=== PATIENT | female | born 2000 | race Caucasian/White ===

== ENCOUNTER 2022-02-27 14:07 | Outpatient (CLI) | payer OTHER | END 2022-02-27 14:08 | disposition home or self-care (01) | LOC: CSHULT 14:07 | PROVIDERS: ATTEND Family Medicine | DX: Z34.02 Encounter for supervision of normal first pregnancy, second trimester (principal); Z3A.24 24 weeks gestation of pregnancy | CPT/HCPCS: 76805 ==

== ENCOUNTER 2022-04-09 16:15 | Emergency (ER) | payer OTHER | END 2022-04-09 17:02 | disposition home or self-care (01) | LOC: CSHERS 16:15 | DX: O99.891 Other specified diseases and conditions complicating pregnancy (principal); H66.92 Otitis media, unspecified, left ear; Z20.822 Contact with and (suspected) exposure to COVID-19; O99.333 Smoking (tobacco) complicating pregnancy, third trimester; F17.290 Nicotine dependence, other tobacco product, uncomplicated; Z3A.30 30 weeks gestation of pregnancy | CPT/HCPCS: 87804; 99283; U0003; U0005 ==

== ENCOUNTER 2022-05-08 16:14 | Day surgery (SDC) | payer OTHER | END 2022-05-08 18:35 | disposition home or self-care (01) | LOC: CSHLD/OP 16:14 | PROVIDERS: ATTEND Family Medicine | DX: Z36.4 Encounter for antenatal screening for fetal growth retardation (principal); Z3A.34 34 weeks gestation of pregnancy | CPT/HCPCS: 59025; 76815; 76819; 99282 ==

== ENCOUNTER 2022-06-12 18:00 | Inpatient (IN) | payer OTHER ==
[~2022-06-12 18:00] MED LIST: Bupivacaine/Epinephrine 0.25% 30 ML VIAL ONE; Terbutaline Sulfate 1 MG/ML VIAL ONE; ePHEDrine Sulfate 50 MG/10 ML VIAL ONE
[2022-06-12 22:13] VITALS: BMI 32.7
[2022-06-12] MEDS ORDERED: Acetaminophen 500 MG TAB PO PRN (23:00)
[2022-06-12] MEDS ORDERED: Tranexamic Acid 1,000 MG in Sodium Chloride 0.9% 250 ML 250 ML IVPB PRN (23:00)
[2022-06-12] MEDS ORDERED: Misoprostol 200 MCG TAB PR PRN (23:00)
[2022-06-12] MEDS ORDERED: HYDROcodone/Acetaminophen 5/325 mg Tablet PO PRN (23:00)
[2022-06-12] MEDS ORDERED: Butorphanol Tartrate 1 MG/ML VIAL SLOW IVP PRN (23:00)
[2022-06-12] MEDS ORDERED: Ondansetron PF 4 MG/2 ML Vial IVP PRN (23:00)
[2022-06-12] MEDS ORDERED: Lidocaine 1% (PF) 30 ML VIAL SC PRN (23:00)
[2022-06-12] MEDS ORDERED: Diphenoxylate HCl/Atropine Tablet PO PRN (23:00)
[2022-06-12] MEDS ORDERED: NS w/ Oxytocin 30 units 500 ML IV SCH (23:00)
[2022-06-12] MEDS ORDERED: Carboprost 250 MCG/ML AMP IM PRN (23:00)
[2022-06-12] MEDS ORDERED: Methylergonovine 0.2 MG/ML VIAL IM PRN (23:00)
[2022-06-12] MEDS ORDERED: Promethazine HCl 25 MG/ML VIAL IM PRN (23:00)
[2022-06-12] MEDS ORDERED: hydrALAZINE 20 MG/ML VIAL SLOW IVP PRN (23:00)
[2022-06-12] MEDS ORDERED: Ibuprofen 800 MG TAB PO PRN (23:00)
[2022-06-12] MEDS ORDERED: Misoprostol 100 MCG TAB ONE (23:10)
[2022-06-12] MEDS ORDERED: Penicillin G Potassium 5 MILL.UNITS VIAL ONE (23:10)
[2022-06-12 23:13] LABS: Hemoglobin 10.7 g/dL (12.0-15.5); Mean Corpuscular HGB CONC 33.3 g/dL (32.0-36.0); Mean Corpuscular Hemoglobin 27.8 pg (27.0-33.0); Mean Corpuscular Volume 83.4 fl (81.6-98.3); Mean Platelet Volume 12.4 fl (7.4-10.4); Platelet Count 178 10x3/uL (150-450); RBC Distribution Width 13.7 % (11.5-14.5); Red Blood Cell (RBC) Count 3.85 10x6/uL (3.90-5.03); White Blood Cell (WBC) Count 8.7 10x3/uL (3.5-10.5)
[2022-06-12] MEDS: Misoprostol 100 MCG TAB VAG SCH (23:24)
[2022-06-12] MEDS: Lactated Ringer's 1,000 ML IV SCH (23:24)
[2022-06-12] MEDS ORDERED: Penicillin G Potassium 5 MILL.UNITS in Sodium Chloride 0.9% 100 ML IVPB SCH (23:30)
[2022-06-12 23:46] LABS: HBSAg Index 0.16 S/CO (0-0.99)
[2022-06-12 23:47] LABS: Syphilis Antibody Nonreactive (Nonreactive); Syphilis Antibody Index 0.03 S/CO (<1.00 Non-Reactive)
[2022-06-13 00:20] LABS: SARS-CoV-2 NAA Rapid Test Not Detected (NotDetected)
[2022-06-13] MEDS: Penicillin G 2.5 MILL.units 2.5 MILL.UNITS in Premix Bag 1 BAG IVPB SCH ×3 (03:37→14:08)
[2022-06-13] MEDS ORDERED: Fentanyl 2 mcg/Bup 0.1% Cadd 100 ML ONE (04:42)
[2022-06-13] MEDS ORDERED: Fentanyl 100 MCG/2 ML VIAL ONE ×2 (04:49→09:55)
[2022-06-13 05:27] LABS: Hep B Surf Ag NonReactive S/CO (NonReactive)
[2022-06-13] MEDS ORDERED: Naloxone HCl 0.4 mg/ml Vial IVP PRN ×4 (06:32→11:22)
[2022-06-13] MEDS ORDERED: Ondansetron PF 4 MG/2 ML Vial IVP PRN ×3 (06:32→13:33)
[2022-06-13] MEDS ORDERED: Acetaminophen 325 MG TAB PO PRN (06:32)
[2022-06-13] MEDS ORDERED: Moisturizing Cream (Eucerin) 113 GM JAR TOP PRN ×2 (06:32→11:22)
[2022-06-13] MEDS ORDERED: ePHEDrine Sulfate 50 MG/10 ML VIAL SLOW IVP PRN (06:32)
[2022-06-13] MEDS ORDERED: Promethazine HCl 25 MG/ML VIAL IM PRN ×3 (06:32→13:33)
[2022-06-13] MEDS ORDERED: Lactated Ringer's 500 ML IV PRN (06:32)
[2022-06-13] MEDS ORDERED: diphenhydrAMINE 50 MG/ML VIAL IVP PRN ×2 (06:32→11:22)
[2022-06-13] MEDS ORDERED: Fentanyl 2 mcg/Bupivacaine 0.1% Cassette 100 ML EPIDURAL SCH (06:45)
[2022-06-13] MEDS ORDERED: Communication Order-Pharmacy FS SCH ×2 (06:45→11:30)
[2022-06-13] MEDS: Lactated Ringer's 1,000 ML IV SCH (06:55)
[2022-06-13] MEDS ORDERED: ePHEDrine 50 MG/ML VIAL SLOW IVP PRN (08:00)
[2022-06-13] MEDS ORDERED: Lidocaine 2% MPF 10 ML AMP (For Epidural Use) ONE (09:54)
[2022-06-13] MEDS ORDERED: Morphine PF 10 MG/10 ML VIAL ONE (09:54)
[2022-06-13] MEDS ORDERED: EPINEPHrine 1 MG/10 ML Abboject SYRINGE ONE (09:54)
[2022-06-13] MEDS ORDERED: Phenylephrine 40 MG/NS 250 ML 250 ML ONE (09:54)
[2022-06-13] MEDS ORDERED: Ketorolac Tromethamine 30 MG/ML VIAL ONE (09:54)
[2022-06-13] MEDS ORDERED: ePHEDrine Sulfate 50 MG/10 ML VIAL ONE (10:02)
[2022-06-13] MEDS ORDERED: Dexamethasone 4 mg/ml Vial ONE (10:22)
[2022-06-13] MEDS ORDERED: Ondansetron PF 4 MG/2 ML Vial ONE (10:22)
[2022-06-13] MEDS ORDERED: Oxytocin 10 UNITS/ML VIAL ONE ×2 (10:28→10:53)
[2022-06-13] MEDS ORDERED: diphenhydrAMINE 50 MG/ML VIAL ONE (10:37)
[2022-06-13 10:50] LABS: RapidComm Collect By CBN
[2022-06-13] MEDS ORDERED: Fentanyl 100 MCG/2 ML VIAL SLOW IVP PRN (11:22)
[2022-06-13] MEDS ORDERED: Naloxone HCl 0.4 mg/ml Vial IV PRN (11:22)
[2022-06-13] MEDS ORDERED: Ondansetron HCl/PF 4 MG/2 ML Vial IVP PRN (11:22)
[2022-06-13] MEDS ORDERED: Promethazine HCl 25 MG SUPP PR PRN (11:22)
[2022-06-13] MEDS ORDERED: Ketorolac Tromethamine 30 MG/ML VIAL IVP PRN (11:22)
[2022-06-13] MEDS ORDERED: Meperidine HCl/PF 25 MG/ML VIAL SLOW IVP PRN (11:22)
[2022-06-13] MEDS ORDERED: Ketorolac Tromethamine 30 MG/ML VIAL IVP SCH (11:30)
[2022-06-13] MEDS ORDERED: Boostrix 0.5 ML (Tdap) VIAL (>/=7 yrs of age) IM ONE (13:33)
[2022-06-13] MEDS ORDERED: Bisacodyl 10 MG SUPP PR PRN (13:33)
[2022-06-13] MEDS ORDERED: diphenhydrAMINE 25 MG CAP PO PRN (13:33)
[2022-06-13] MEDS ORDERED: Lanolin Ointment 7 GM TUBE TOP PRN (13:33)
[2022-06-13] MEDS ORDERED: hydrALAZINE 20 MG/ML VIAL SLOW IVP PRN (13:33)
[2022-06-13] MEDS ORDERED: Simethicone Chewable 80 MG TAB PO PRN (13:33)
[2022-06-13] MEDS: Misoprostol 100 MCG TAB VAG SCH (13:41)
[2022-06-13] MEDS: Ketorolac Tromethamine 30 MG/ML VIAL IVP SCH (16:58)
[2022-06-13] MEDS: Ferrous Sulfate 325 MG TAB PO SCH (21:19)
[2022-06-13] MEDS: Docusate 100 MG CAP PO SCH (21:19)
[2022-06-13] MEDS ORDERED: Meperidine HCl/PF 25 MG/ML VIAL IM PRN (23:31)
[2022-06-14] MEDS: Ketorolac Tromethamine 30 MG/ML VIAL IVP SCH ×2 (00:15→04:46)
[2022-06-14 05:10] LABS: Hemoglobin 8.6 g/dL (12.0-15.5); Mean Corpuscular HGB CONC 32.3 g/dL (32.0-36.0); Mean Corpuscular Hemoglobin 27.4 pg (27.0-33.0); Mean Corpuscular Volume 84.7 fl (81.6-98.3); Mean Platelet Volume 12.3 fl (7.4-10.4); Platelet Count 139 10x3/uL (150-450); RBC Distribution Width 13.8 % (11.5-14.5); Red Blood Cell (RBC) Count 3.14 10x6/uL (3.90-5.03); White Blood Cell (WBC) Count 14.1 10x3/uL (3.5-10.5)
[2022-06-14] MEDS: Ferrous Sulfate 325 MG TAB PO SCH ×2 (07:20→21:33)
[2022-06-14] MEDS: Docusate 100 MG CAP PO SCH ×2 (08:24→21:33)
[2022-06-14] MEDS: HYDROcodone/Acetaminophen 5/325 mg Tablet PO PRN ×2 (08:24→12:33)
[2022-06-14] MEDS: Prenatal Vitamin 1 TAB PO SCH (08:25)
[2022-06-14] MEDS: Ibuprofen 800 MG TAB PO SCH ×2 (13:19→21:33)
[2022-06-14] MEDS ORDERED: Ibuprofen 800 MG TAB PO PRN (17:00)
[2022-06-15] MEDS: HYDROcodone/Acetaminophen 5/325 mg Tablet PO PRN ×4 (01:23→21:22)
[2022-06-15] MEDS: Ibuprofen 800 MG TAB PO SCH ×3 (05:07→21:22)
[2022-06-15] MEDS: Docusate 100 MG CAP PO SCH ×2 (08:16→21:22)
[2022-06-15] MEDS: Prenatal Vitamin 1 TAB PO SCH (08:16)
[2022-06-15] MEDS: Ferrous Sulfate 325 MG TAB PO SCH ×2 (08:16→21:22)
[2022-06-15] MEDS ORDERED: Benzocaine-Menthol 82.5 ML CAN TOP PRN (13:12)
[2022-06-16] MEDS: Ibuprofen 800 MG TAB PO SCH (05:21)
[2022-06-16 07:30] VITALS: BP 127/72; TEMP 98.6
[2022-06-16] MEDS: Docusate 100 MG CAP PO SCH (09:45)
[2022-06-16] MEDS: Ferrous Sulfate 325 MG TAB PO SCH (09:45)
[2022-06-16] MEDS: Prenatal Vitamin 1 TAB PO SCH (09:45)
== END 2022-06-16 12:03 | disposition home or self-care (01) | DRG 788 ==
LOC: CSHLD 21:51 → CSHPP 06-13 13:05
PROVIDERS: ADMIT Family Medicine; ATTEND Family Medicine
PROC: 10D00Z1 Extraction of Products of Conception, Low, Open Approach (ICD-10-PCS; principal; 2022-06-13)
PROC: 4A133R1 Monitoring of Arterial Saturation, Peripheral, Percutaneous Approach (ICD-10-PCS; 2022-06-13)
PROC: 3E0P05Z Introduction of Adhesion Barrier into Female Reproductive, Open Approach (ICD-10-PCS; 2022-06-13)
PROC: 10H07YZ Insertion of Other Device into Products of Conception, Via Natural or Artificial Opening (ICD-10-PCS; 2022-06-13)
PROC: 3E0P7VZ Introduction of Hormone into Female Reproductive, Via Natural or Artificial Opening (ICD-10-PCS; 2022-06-13)
DX: O36.5930 Maternal care for other known or suspected poor fetal growth, third trimester, not applicable or unspecified (principal); Z3A.39 39 weeks gestation of pregnancy; Z37.0 Single live birth; Z20.822 Contact with and (suspected) exposure to COVID-19; O76 Abnormality in fetal heart rate and rhythm complicating labor and delivery; O99.824 Streptococcus B carrier state complicating childbirth; Z79.899 Other long term (current) drug therapy; O42.02 Full-term premature rupture of membranes, onset of labor within 24 hours of rupture
CPT/HCPCS: 36415; 51702; 82805; 85027; 86780; 86850; 86900; 86901; 87340; 88307; J0171; J1100; J1200; J1885; J2274; J2405; J2540; J2590; J3010; J3105; J3490; J7120; U0002

== ENCOUNTER 2023-05-12 01:31 | Inpatient (IN) | payer OTHER ==
[2023-05-12 01:45] VITALS: BMI 37.5
[2023-05-12] MEDS: Penicillin G Potassium 5 MILL.UNITS VIAL ONE (02:08)
[2023-05-12] MEDS ORDERED: Lidocaine 1% (PF) 30 ML VIAL SC PRN (02:16)
[2023-05-12] MEDS ORDERED: Ibuprofen 800 MG TAB PO PRN (02:16)
[2023-05-12] MEDS ORDERED: Tranexamic Acid 1,000 MG/10 ML VIAL IVP PRN (02:18)
[2023-05-12] MEDS ORDERED: Docusate 100 MG CAP PO PRN (02:18)
[2023-05-12] MEDS ORDERED: Misoprostol 200 MCG TAB PR PRN (02:18)
[2023-05-12] MEDS ORDERED: Acetaminophen 500 MG TAB PO PRN (02:18)
[2023-05-12] MEDS ORDERED: hydrALAZINE 20 MG/ML VIAL SLOW IVP PRN ×2 (02:18→09:55)
[2023-05-12] MEDS ORDERED: Ondansetron PF 4 MG/2 ML Vial IVP PRN ×5 (02:18→09:55)
[2023-05-12] MEDS ORDERED: Methylergonovine 0.2 MG/ML VIAL IM PRN (02:18)
[2023-05-12] MEDS ORDERED: Promethazine HCl 25 MG/ML VIAL IM PRN ×4 (02:18→09:55)
[2023-05-12] MEDS ORDERED: Oxytocin 30 units/NS 500 ML 500 ML IV SCH ×2 (02:30)
[2023-05-12] MEDS ORDERED: Penicillin G Potassium 5 MILL.UNITS in Sodium Chloride 0.9% 100 ML IVPB SCH (02:30)
[2023-05-12 02:49] LABS: Hematocrit 30.1 % (34.9-44.5); Hemoglobin 9.4 g/dL (12.0-15.5); Mean Corpuscular HGB CONC 31.2 g/dL (32.0-36.0); Mean Corpuscular Hemoglobin 22.5 pg (27.0-33.0); Mean Platelet Volume 11.3 fl (7.4-10.4); Platelet Count 184 10x3/uL (150-450); RBC Distribution Width 15.6 % (11.5-14.5); Red Blood Cell (RBC) Count 4.18 10x6/uL (3.90-5.03); White Blood Cell (WBC) Count 14.7 10x3/uL (3.5-10.5)
[2023-05-12] MEDS: fentaNYL/Ropivacaine Epidural 100 ML ONE (03:08)
[2023-05-12 03:18] LABS: Syphilis Antibody Nonreactive (Nonreactive); Syphilis Antibody Index 0.06 S/CO (<1.00 Non-Reactive)
[2023-05-12 03:19] LABS: HBSAg Index 0.23 S/CO (0-0.99); Hep B Surf Ag - L&D Non-Reactive S/CO (NonReactive)
[2023-05-12] MEDS ORDERED: fentaNYL 2 mcg/Ropivacaine 0.2% Epidural 100 ML CADD EPIDURAL SCH (03:30)
[2023-05-12] MEDS ORDERED: Naloxone HCl 0.4 mg/ml Vial IVP PRN ×4 (03:30→08:50)
[2023-05-12] MEDS ORDERED: Lactated Ringer's 500 ML IV PRN (03:30)
[2023-05-12] MEDS ORDERED: Acetaminophen 325 MG TAB PO PRN (03:30)
[2023-05-12] MEDS ORDERED: diphenhydrAMINE 50 MG/ML VIAL IVP PRN ×2 (03:30→08:50)
[2023-05-12] MEDS ORDERED: ePHEDrine Sulfate 50 MG/10 ML VIAL SLOW IVP PRN (03:30)
[2023-05-12] MEDS ORDERED: Moisturizing Cream (Eucerin) 113 GM JAR TOP PRN ×2 (03:30→08:50)
[2023-05-12] MEDS ORDERED: Communication Order-Pharmacy FS SCH ×2 (03:30→09:00)
[2023-05-12] MEDS ORDERED: Penicillin G 2.5 MILL.units 2.5 MILL.UNITS in Premix 1 BAG IVPB SCH (06:30)
[2023-05-12] MEDS ORDERED: Bupivacaine 0.25% HCL 30 ML VIAL ONE (08:00)
[2023-05-12] MEDS: Ondansetron PF 4 MG/2 ML Vial ONE (08:26)
[2023-05-12] MEDS: Azithromycin 500 MG VIAL ONE (08:26)
[2023-05-12] MEDS: Midazolam HCl 2 mg/2 ml Vial ONE (08:26)
[2023-05-12] MEDS: Lidocaine 2% MPF 10 ML AMP (For Epidural Use) ONE ×2 (08:26)
[2023-05-12] MEDS: CEFAZOLIN 2 GM VIAL ONE (08:26)
[2023-05-12] MEDS: Oxytocin 10 UNITS/ML VIAL ONE (08:26)
[2023-05-12] MEDS: Ketorolac Tromethamine 30 MG (1 mL) VIAL ONE (08:26)
[2023-05-12] MEDS: Morphine PF 10 MG/10 ML VIAL ONE (08:26)
[2023-05-12] MEDS: PHENYLEPHRINE-NS 100 MCG/ML 10 ML SYRINGE ONE (08:26)
[2023-05-12] MEDS ORDERED: Naloxone HCl 0.4 mg/ml Vial IV PRN (08:50)
[2023-05-12] MEDS ORDERED: Promethazine HCl 25 MG SUPP PR PRN (08:50)
[2023-05-12] MEDS ORDERED: fentaNYL 50 mcg/mL 1 mL Vial SLOW IVP PRN (08:50)
[2023-05-12] MEDS ORDERED: Ketorolac Tromethamine 30 MG (1 mL) VIAL IVP SCH (09:00)
[2023-05-12] MEDS: Lactated Ringer's 1,000 ML IV SCH (09:08)
[2023-05-12] MEDS: Meperidine HCl/PF 25 MG (1 mL) VIAL SLOW IVP PRN (09:09)
[2023-05-12] MEDS ORDERED: Simethicone Chewable 80 MG TAB PO PRN (09:55)
[2023-05-12] MEDS ORDERED: diphenhydrAMINE 25 MG CAP PO PRN (09:55)
[2023-05-12] MEDS ORDERED: Bisacodyl 10 MG SUPP PR PRN (09:55)
[2023-05-12] MEDS ORDERED: Lanolin Ointment 7 GM TUBE TOP PRN (09:55)
[2023-05-12] MEDS: Docusate 100 MG CAP PO SCH ×2 (12:27→20:26)
[2023-05-12] MEDS: Meperidine HCl/PF 25 MG (1 mL) VIAL SLOW IVP SCH (12:27)
[2023-05-12] MEDS: Prenatal Vitamin 1 TAB PO SCH (12:27)
[2023-05-12] MEDS: Boostrix 0.5 ML (Tdap) VIAL (>/=7 yrs of age) IM ONE (12:27)
[2023-05-12] MEDS: Ferrous Sulfate 325 MG TAB PO SCH ×2 (12:27→20:26)
[2023-05-12] MEDS: Ketorolac Tromethamine 30 MG (1 mL) VIAL IVP PRN (14:03)
[2023-05-12] MEDS ORDERED: Meperidine HCl/PF 25 MG (1 mL) VIAL IM PRN (21:00)
[2023-05-12] MEDS: HYDROcodone/Acetaminophen 5/325 mg Tablet PO PRN (21:07)
[2023-05-13 04:11] LABS: Hematocrit 25.5 % (34.9-44.5); Mean Corpuscular HGB CONC 31.4 g/dL (32.0-36.0); Mean Corpuscular Hemoglobin 22.7 pg (27.0-33.0); Mean Corpuscular Volume 72.2 fl (81.6-98.3); Mean Platelet Volume 11.4 fl (7.4-10.4); Platelet Count 145 10x3/uL (150-450); RBC Distribution Width 15.9 % (11.5-14.5); Red Blood Cell (RBC) Count 3.53 10x6/uL (3.90-5.03); White Blood Cell (WBC) Count 13.5 10x3/uL (3.5-10.5)
[2023-05-13] MEDS: HYDROcodone/Acetaminophen 5/325 mg Tablet PO PRN (04:45)
[2023-05-13] MEDS: Prenatal Vitamin 1 TAB PO SCH (07:47)
[2023-05-13] MEDS: Ibuprofen 800 MG TAB PO SCH (14:25)
[2023-05-13] MEDS ORDERED: Ibuprofen 800 MG TAB PO PRN (15:00)
[2023-05-14] MEDS: Docusate 100 MG CAP PO SCH (21:11)
[2023-05-15 08:19] VITALS: BP 120/63; TEMP 97.7
[2023-05-15] MEDS: Docusate 100 MG CAP PO SCH (09:18)
== END 2023-05-15 12:50 | disposition home or self-care (01) | DRG 788 ==
LOC: CSHLD/OP 01:31 → CSHLD 03:30 → CSHPP 10:05
PROVIDERS: ADMIT Family Medicine; ATTEND Family Medicine
PROC: 10D00Z1 Extraction of Products of Conception, Low, Open Approach (ICD-10-PCS; principal; 2023-05-12)
DX: O99.824 Streptococcus B carrier state complicating childbirth (principal); Z3A.37 37 weeks gestation of pregnancy; Z37.0 Single live birth; O76 Abnormality in fetal heart rate and rhythm complicating labor and delivery; O99.214 Obesity complicating childbirth; E66.9 Obesity, unspecified; Z79.899 Other long term (current) drug therapy
CPT/HCPCS: 51702; 85027; 86780; 86850; 86900; 86901; 87340; 88307; 99285; J0665; J1885; J2175; J2250; J2274; J2405; J2540; J2590; J7120